=== PATIENT | female | born 1990 | race Caucasian/White ===

== ENCOUNTER 2021-11-22 15:04 | Emergency (ER) | payer BC ==
[~2021-11-22] VITALS: Ht 157.5 cm; Wt 56.7 kg
--- NOTE | 2021-11-22 15:27 | NUR ---
BIBS C/O LUQ PAIN X5 DAY ASSOCIATED WITH NAUSEA NAD VOMITTING. PT WENT TO URGENT [facility]ARE [facility]IOR AND CONFIRMED SHE WAS NOT AND REFEERED TO ER. PT VITALS ARE WITHIN NORMAL LIMITS. AWAITING MD SUMMERS.
[2021-11-22] MEDS ORDERED: KETOROLAC TROMETHAMINE INJ 30 MG/ML VIAL IV ONE ×2 (16:00→19:30)
[2021-11-22] MEDS ORDERED: IV NS 0.9% 1,000 ML BAG IV ONE (16:00)
[2021-11-22] MEDS ORDERED: ONDANSETRON HCL/PF 4 MG/2 ML VIAL IVP ONE (16:00)
[2021-11-22] MEDS ORDERED: ONDANSETRON HCL/PF 4 MG/2 ML VIAL ONE (16:10)
[2021-11-22] MEDS ORDERED: KETOROLAC TROMETHAMINE INJ 30 MG/ML VIAL ONE (16:10)
--- NOTE | 2021-11-22 16:10 | NUR ---
IV ESTABLIHSED L AC 20G. ALBS DRAWN AND SENT
--- NOTE | 2021-11-22 16:28 | NUR ---
ULTRASOUND AT BEDSIDE
[2021-11-22 17:14] LABS: BILIRUBIN,URINE NEGATIVE (NEGATIVE); COLOR,URINE YELLOW (YELLOW); LEUKOCYTE ESTERASE ,URINE NEGATIVE (NEGATIVE); NITRITE, URINE NEGATIVE (NEGATIVE); PH,URINE 7.5 (5.0-8.0); PROTEIN,URINE TRACE mg/dl (NEGATIVE); UGLUCOSE NEGATIVE (NEGATIVE); UROBILINOGEN,URINE 0.2 EU/dL (0.2)
[2021-11-22 17:17] LABS: BASOPHILS % (AUTO) 0.2 % (0.0-2.0); EOSINOPHILS % (AUTO) 0.1 % (0.0-6.0); HEMATOCRIT 42 % (33-45); HEMOGLOBIN 14.7 g/dL (11.5-14.8); LYMPHOCYTES % (AUTO) 21.3 % (20.0-44.0); MEAN CORPUSCULAR HGB CONC 35 g/dl (31.0-36.0); MEAN CORPUSCULAR VOLUME 90 fL (82-100); MONOCYTES # (AUTO) 0.7 K/uL (0.1-1.30); MONOCYTES % (AUTO) 7.3 % (2.0-12.0); NEUTROPHILS # (AUTO) 6.5 K/uL (1.8-8.9); NEUTROPHILS % (AUTO) 71.1 % (43.0-81.0); PLATELET COUNT (AUTO) 226 K/uL (150-450); RED BLOOD CELL COUNT(AUTO) 4.68 MIL/uL (4.0-5.2); WHITE BLOOD COUNT (AUTO) 9.2 K/uL (4.3-11.0)
[2021-11-22 17:21] LABS: BACTERIA,URINE RARE /HPF (None Seen); MUCUS,URINE Many /LPF (None Seen); RBC,URINE 0-2 /HPF (0-2); SQUAMOUS EPITHELIAL CELL,UR 0-2 /HPF (None Seen); WBC,URINE 0-2 /HPF (0-3)
[2021-11-22 17:30] LABS: CALCIUM, SERUM 9.8 mg/dL (8.5-10.1); CREATININE 0.8 mg/dL (0.6-1.3); POTASSIUM 3.5 mmol/L (3.5-5.1)
[2021-11-22 17:36] LABS: ALBUMIN 4.5 g/dL (3.4-5.0); BILIRUBIN,DIRECT 0.2 mg/dL (0.0-0.2); BILIRUBIN,TOTAL 0.9 mg/dL (0.2-1.0); TOTAL PROTEIN, SERUM 8.4 g/dL (6.4-8.2)
[2021-11-22] MEDS ORDERED: KETOROLAC TROMETHAMINE 15 MG/ML VIAL ONE (19:06)
--- NOTE | 2021-11-22 19:14 | NUR ---
IV removed. Catheter intact and site benign. Pressure and 4x4 applied to site. No bleeding noted.Patient discharged to home in stable condition. Written and verbal after care instructions given. Patient verbalizes understanding of instruction.
[2021-11-22 19:15] VITALS: BP 122/81
== END 2021-11-22 19:16 | disposition home or self-care (01) ==
LOC: ER 15:43
DX: R10.13 Epigastric pain (principal); R10.12 Left upper quadrant pain; R11.2 Nausea with vomiting, unspecified; Z60.2 Problems related to living alone
CPT/HCPCS: 99285; 74176; 96374; 76705; 96375; 96361; 85025; 80048; 83690; 80076; 84703; 81001; 36415; J1885 ×2; J2405; J7030